=== PATIENT | female | born 1995 | race African-American/Black ===

== ENCOUNTER 2022-12-14 02:19 | Emergency (ER) | payer MEDICAID, OTHER ==
[~2022-12-14] VITALS: Ht 167.6 cm; Wt 61.0 kg
[2022-12-14 02:22] VITALS: BP 122/68; PULSE 86; RESP 18; TEMP 98.2; O2SAT 96
[2022-12-14] MEDS ORDERED: HYDR453.3 TP (02:51)
[2022-12-14] MEDS ORDERED: DIPHENHYDRAMINE 25MG CAPSULE PO ONE (03:00)
== END 2022-12-14 04:06 | disposition home or self-care (01) ==
LOC: ER 02:19
DX: L29.9 Pruritus, unspecified (principal)
CPT/HCPCS: 99283; 81025; Q0163